=== PATIENT | male | born 1940 | race Caucasian/White ===

== ENCOUNTER 2024-03-30 22:36 | Inpatient (IN) | payer MEDICARE, BC, SELFPAY ==
[2024-03-30 22:47] VITALS: BP 179/77; PULSE 66; RESP 17; TEMP 36.4; O2SAT 98; BMI 28.4
--- NOTE | 2024-03-30 23:04 | XRR_ITS ---
PROCEDURE INFORMATION: Exam: XR Abdomen Exam date and time: 03/30/2024 11:45 PM Age: 84 years old Clinical indication: Abdominal pain; Generalized; Additional info: Abd pain TECHNIQUE: Imaging protocol: Radiologic exam of the abdomen. Views: Frontal supine view of the abdomen. 1 View. COMPARISON: No relevant prior studies available. FINDINGS: Gastrointestinal tract: Nonobstructive bowel gas pattern.. No bowel dilation. Bones/joints: Unremarkable. XR/XR abdomen 1V* [id number] IMPRESSION: As above.
[2024-03-30 23:42] VITALS: BP 154/89; PULSE 62; O2SAT 96
[2024-03-31] VITALS (26 sets, daily range): BP systolic 100–193; BP diastolic 57–107; PULSE 58–85; RESP 12–24; TEMP 36.8–37.4; O2SAT 90–98; BMI 28.8
[2024-03-31 00:15] LABS: Basophils % 0.4 %; Eosinophils # 0.1 10^3/uL (0.0-0.8); Eosinophils % 0.7 %; Hematocrit 42.4 % (37-53); Lymphocytes # 0.9 10^3/uL (0.8-4.8); Lymphocytes % 7.7 %; Mean Corpuscular HGB Conc 33.5 g/dL (30-55); Mean Corpuscular Hemoglobin 30.8 pg (27-33); Mean Platelet Volume 10.6 fL (7.4-10.4); Monocytes # 0.7 10^3/uL (0.2-0.9); Monocytes % 6.2 %; Neutrophils # 9.41 10^3/uL (1.8-7.7); Neutrophils % 84.7 %; Nucleated Red Blood Cells % 0 %; Platelet Count 199 10^3/cmm (157-399); Red Blood Count 4.61 10^6/uL (3.85-5.65); Red Cell Distribution Width 12.2 % (12.1-15.1); White Blood Count 11.11 10^3/uL (3.29-11.43)
--- NOTE | 2024-03-31 00:22 | ED_ITS ---
HPI - Abdominal Pain 2 General: Chief Complaint: Abdominal Pain Stated Complaint: ABD Pain Time Seen by Provider: 03/30/24 22:44 History of Present Illness: 84-year-old man with a history of alpha gal, pulmonary embolism on Eliquis, GERD who presents to the emergency room with lower abdominal pain. He says this started earlier today and is very severe now. He did have some vomiting after he drank chamomile tea that his had given him to try to help with his symptoms. No dysuria. No fevers. No altered mental status. No chest pain. On exam pain is in the right lower quadrant. Related Data Allergies Allergy/AdvReac Type Severity Reaction Status Date / Time Unable to Assess Allergy Unverified 03/30/24 23:03 Review of Systems 2 Narrative: Constitutional symptoms: Negative except as documented in HPI. Skin symptoms: Negative except as documented in HPI. Eye symptoms: Negative except as documented in HPI. ENMT symptoms: Negative except as documented in HPI. Respiratory symptoms: Negative except as documented in HPI. Cardiovascular symptoms: Negative except as documented in HPI. Gastrointestinal symptoms: Negative except as documented in HPI. Genitourinary symptoms: Negative except as documented in HPI. Musculoskeletal symptoms: Negative except as documented in HPI. Neurologic symptoms: Negative except as documented in HPI. Psychiatric symptoms: Negative except as documented in HPI. Endocrine symptoms: Negative except as documented in HPI. Physical Exam 2 Narrative: EXAM NARRATIVE: General: Alert, no acute distress. Skin: Warm, dry. Head: Normocephalic, atraumatic. Neck: Supple, trachea midline. Eye: Extraocular movements are intact. Ears, nose, mouth and throat: mucosa moist. Cardiovascular: Regular, Normal peripheral perfusion. Respiratory: Lungs are clear to auscultation, respirations are non-labored, breath sounds are equal, Symmetrical chest wall expansion. Gastrointestinal: Soft, moderate rlq pain, Non distended Musculoskeletal: Normal ROM, no deformity. Neurological: Alert and oriented, No focal neurological deficit observed. Psychiatric: Cooperative, appropriate mood & affect. Course 2 Vital Signs: Vital signs: Vital Signs Temperature 97.6 F 03/30/24 22:47 Pulse Rate 79 03/31/24 01:30 Respiratory Rate 24 H 03/31/24 01:30 Blood Pressure 193/107 03/31/24 01:30 Pulse Oximetry 95 03/31/24 01:30 Oxygen Delivery Me thod Room Air 03/30/24 22:47 MDM - Abdominal Pain Medical Decision Making Medical decision making: Differential diagnosis for this patient with right lower quadrant abdominal pain including but not limited to and based on the above HPI, review of systems and physical exam: Ureterolithiasis. Urinary tract infection. Appendicitis. colitis. small bowel obstruction. Crohn's flare. Pancreatitis. Cholelithiasis or cholecystitis. Hepatitis. Diverticulitis. Constipation. ovarian cyst. ovarian torsion Workup: Orders were placed to evaluate differential diagnosis based on the above differential, HPI and exam: Lab Review: Laboratory results were reviewed and interpreted by myself the emergency room physician. Mild leukocytosis with a white count of 11. No anemia. No renal failure. He does have a urinary tract infection. CT of the abdomen pelvis with contrast: Mild acute appendicitis. There are appendicoliths. Pulmonary nodule. Multiple cysts in the kidneys. This was reviewed and interpreted by myself the emergency room physician. I also reviewed the radiology report. Reexamination: Patient still has tenderness in the right lower quadrant. No increased work of breathing. No altered mental status. Consultation: I spoke with Dr. Ricks who is on-call for general surgery who accepts the patient to observation to the floor. N.p.o. status. Zosyn given per recommendations. Assessment and plan: Acute appendicitis Urinary tract infection Pulmonary nodule ?IV morphine, IV Rocephin was given for the urinary tract infection and then appendicitis was diagnosed so Zosyn was given at that time. IV Zofran. -I discussed the patient with the hospitalist on-call who is admitting the patient. - Discussed findings and plan with patient. Answered any questions. - All laboratory values were reviewed and interpreted personally by myself, the ER physician - All imaging was reviewed and interpreted personally by myself, the ER physician. - Evaluation and treatment of this problem were appropriate in the emergency setting Lab Data 03/31/24 00:00 03/31/24 00:00 Labs/Radiology: Radiology Impressions Abdomen X-Ray 03/30/24 23:04 IMPRESSION: As above. Abdomen/Pelvis CT 03/31/24 00:41 IMPRESSION: 1. The appendix is dilated with multiple appendicoliths and mild periappendiceal fat stranding consistent with mild acute appendicitis. No evidence of complication. 2. Incidental left lower lobe pulmonary nodule. For patients at low risk (minimal or absent history of smoking and of other known risk factors), no routine follow-up is indicated. For patients at high risk (history of smoking or of other known risk factors), consider optional CT Chest at 12 months. (Reference: Fanny) THIS REPORT CONTAINS FINDINGS THAT MAY BE CRITICAL TO PATIENT CARE. The findings were verbally communicated via telephone conference with TAL SALEEM at 1:34 AM SURGICAL APPLIANCES SALESPERSON on 03/31/2024. The findings were acknowledged and understood. COMMENTS: Consistent with the [employer]'s Incidental Findings Committee white paper (J Am Ami Radiol 2018): Any incidental renal lesion less than 1 cm or classified as too small to characterize, or any incidental cystic renal lesion characterized as simple-appearing, is likely benign. No follow-up imaging is recommended for these lesions per consensus recommendations based on imaging criteria. REFERENCES: Fanny Engel, et al. Guidelines for Management of Incidental Pulmonary Nodules Detected on CT Images: From the Fleischner Society 2017. Radiology. 2017;284(1):228-243. Laboratory Results WBC 11.11 10^3/uL (3.29-11.43) 03/31/24 00:00 RBC 4.61 10^6/uL (3.85-5.65) 03/31/24 00:00 Hgb 14.20 g/dL (11.27-16.99) 03/31/24 00:00 Hct 42.4 % (37-53) 03/31/24 00:00 MCV 92.0 fl (82-101) 03/31/24 00:00 MCH 30.8 pg (27-33) 03/31/24 00:00 MCHC 33.5 g/dL (30-55) 03/31/24 00:00 RDW 12.2 % (12.1-15.1) 03/31/24 00:00 Plt Count 199 10^3/cmm (157-399) 03/31/24 00:00 MPV 10.6 fL (7.4-10.4) H 03/31/24 00:00 Neut % (Auto) 84.7 % 03/31/24 00:00 Lymph % (Auto) 7.7 % 03/31/24 00:00 [place] % (Auto) 6.2 % 03/31/24 00:00 Eos % (Auto) 0.7 % 03/31/24 00:00 Baso % (Auto) 0.4 % 03/31/24 00:00 Neut # (Auto) 9.41 10^3/uL (1.8-7.7) H 03/31/24 00:00 Lymph # (Auto) 0.9 10^3/uL (0.8-4.8) 03/31/24 00:00 [place] # (Auto) 0.7 10^3/uL (0.2-0.9) 03/31/24 00:00 Eos # (Auto) 0.1 10^3/uL (0.0-0.8) 03/31/24 00:00 Baso # (Auto) 0.0 10^3/uL (0.0-0.1) 03/31/24 00:00 Nucleated RBC % (auto) 0 % 03/31/24 00:00 Nucleated RBCs # 0.0 /100WBC 03/31/24 00:00 Sodium 141 mmol/L (136-145) 03/31/24 00:00 Potassium 4.0 mmol/L (3.5-5.1) 03/31/24 00:00 Chloride 104 mmol/L (98-107) 03/31/24 00:00 Carbon Dioxide 26 mmol/L (22-29) 03/31/24 00:00 Anion Gap 15.0 (5-19) 03/31/24 00:00 BUN 20 mg/dL (8-23) 03/31/24 00:00 Creatinine 0.8 mg/dL (0.7-1.2) 03/31/24 00:00 GFR Calculation Not Reportable 03/31/24 00:00 Glucose 121 mg/dL (65-115) H 03/31/24 00:00 Calculated Osmolality 296 mOsm/kg (285-295) H 03/31/24 00:00 Lactic Acid 1.2 mmol/L (0.5-2.2) 03/31/24 00:00 Calcium 9.9 mg/dL (8.5-10.5) 03/31/24 00:00 Total Bilirubin 0.5 mg/dL (0.15-1.2) 03/31/24 00:00 AST 14 U/L (0-40) 03/31/24 00:00 ALT 13 U/L (0-41) 03/31/24 00:00 Alkaline Phosphatase 99 U/L (40-130) 03/31/24 00:00 Total Protein 6.8 g/dL (6.6-8.7) 03/31/24 00:00 Albumin 4.1 g/dL (3.5-5.2) 03/31/24 00:00 Globulin 2.7 g/dL (1.3-4.6) 03/31/24 00:00 Lipase 10 U/L (13-60) L 03/31/24 00:00 Urine Color Yellow (Yellow) 03/31/24:22 Urine Appearance Clear (CLEAR) 03/31/24: Urine pH 5.5 (5-7) 03/31/24:22 Ur Specific [place] 1.017 (1.005-1.030) 03/31/24 00: Urine Protein Trace (Negative) A 03/31/24: Urine Glucose (UA) Negative (Normal) 03/31/24: Urine Ketones Negative (Negative) 03/31/24 00: Urine Blood Non-haemolysed trace (Negative) 03/31/24: Urine Nitrate Negative (Negative) 03/31/24: Urine Bilirubin Negative (Negative) 03/31/24: Urine Urobilinogen 1.0 mg/dL (Negative) 03/31/24:22 Ur Leukocyte Esterase 3+ (Negative) A 03/31/24: Urine RBC 3-5 /hpf (0-2) 03/31/24: Urine WBC 21-50 /hpf (0-5) H 03/31/24 00:22 Ur Squamous Epith Cells 0-5 /hpf (0-5) 03/31/24: Amorphous Sediment Not Reportable 03/31/24: Urine Bacteria None seen /hpf (NONE) 03/31/24: Hyaline Casts 0.40 /lpf 03/31/24 00:22 All radiology interpretation(s) finalized by discharge Discharge Plan Discharge Patient Disposition: Placed in Observation Clinical Impression: Acute appendicitis, Urinary tract infection, Pulmonary nodule Coding Level of Care Code ED Director Global Development for Uriel Stafford
[2024-03-31 00:36] LABS: Alanine Aminotransferase 13 U/L (0-41); Albumin Level 4.1 g/dL (3.5-5.2); Alkaline Phosphatase 99 U/L (40-130); Aspartate Amino Transferase 14 U/L (0-40); Blood Urea Nitrogen 20 mg/dL (8-23); Calcium 9.9 mg/dL (8.5-10.5); Carbon Dioxide 26 mmol/L (22-29); Chloride 104 mmol/L (98-107); Creatinine Clr Calc Pharmacy 77.5098; Globulin 2.7 g/dL (1.3-4.6); Glucose 121 mg/dL (65-115); Lipase 10 U/L (13-60); Osmolality Calculated 296 mOsm/kg (285-295); Sodium 141 mmol/L (136-145); Total Bilirubin 0.5 mg/dL (0.15-1.2); Total Protein 6.8 g/dL (6.6-8.7)
[2024-03-31 00:39] LABS: Lactic Sepsis W/Reflex 1.2 mmol/L (0.5-2.2)
[2024-03-31 00:40] LABS: Bilirubin Urine Negative (Negative); Blood Urine Non-haemolysed trace (Negative); Glucose Urine UA Negative (Normal); Ketones Urine Negative (Negative); Leukocyte Esterase Urine 3+ (Negative); Nitrate Urine Negative (Negative); Protein Urine Trace (Negative); Specific Gravity, Urine 1.017 (1.005-1.030); Urine Appearance Clear (CLEAR); Urine Color Yellow (Yellow); pH Urine 5.5 (5-7)
--- NOTE | 2024-03-31 00:41 | CTR_ITS ---
PROCEDURE INFORMATION: Exam: CT Abdomen And Pelvis With Contrast Exam date and time: 03/31/2024 12:54 AM Age: 84 years old Clinical indication: Abdominal pain; Generalized TECHNIQUE: Imaging protocol: Computed tomography of the abdomen and pelvis with contrast. Radiation optimization: All CT scans at this facility use at least one of these dose optimization techniques: automated exposure control; mA and/or kV adjustment per patient size (includes targeted exams where dose is matched to clinical indication); or iterative reconstruction. Contrast material: OMNI 350; Contrast volume: 100 ml; Contrast route: INTRAVENOUS (IV); COMPARISON: CR (ABDOMEN, ) 03/30/2024 11:45 PM RADIATION DOSE METRICS: Total DLP (mGy-cm): 921.59 FINDINGS: Lungs: 4 mm left lower lobe noncalcified nodule (series 3, image 5). Coronary arteries: Severe coronary artery calcifications. Liver: Multiple hypodense lesions throughout the right hepatic lobe likely representing simple cysts. Gallbladder and biliary ducts: Cholelithiasis without evidence of acute cholecystitis. Pancreas: Unremarkable. Spleen: Unremarkable. Adrenal glands: Unremarkable. Kidneys and ureters: Bilateral simple cortical renal cysts. Stomach and bowel: Colonic diverticulosis without diverticulitis. Appendix: The appendix is dilated measuring up to 9 mm with multiple appendicoliths and mild periappendiceal fat stranding consistent with acute appendicitis (series 6, image 58). Intraperitoneal space: No free air or free fluid. Vasculature: Moderate atherosclerotic changes of the aorta and its major branches. Lymph nodes: Unremarkable. Urinary bladder: Unremarkable. Reproductive: Unremarkable. Bones/joints: Moderate multilevel spondylosis. Soft tissues: Small fat containing umbilical hernia. CT/CT abdomen pelvis w con* [id number] IMPRESSION: 1. The appendix is dilated with multiple appendicoliths and mild periappendiceal fat stranding consistent with mild acute appendicitis. No evidence of complication. 2. Incidental left lower lobe pulmonary nodule. For patients at low risk (minimal or absent history of smoking and of other known risk factors), no routine follow-up is indicated. For patients at high risk (history of smoking or of other known risk factors), consider optional CT Chest at 12 months. (Reference: Fanny) THIS REPORT CONTAINS FINDINGS THAT MAY BE CRITICAL TO PATIENT CARE. The findings were verbally communicated via telephone conference with TAL SALEEM at 1:34 AM GALVANIZING POT RUNNER on 03/31/2024. The findings were acknowledged and understood. COMMENTS: Consistent with the [employer]'s Incidental Findings Committee white paper (J Am Ami Radiol 2018): Any incidental renal lesion less than 1 cm or classified as too small to characterize, or any incidental cystic renal lesion characterized as simple-appearing, is likely benign. No follow-up imaging is recommended for these lesions per consensus recommendations based on imaging criteria. REFERENCES: Fanny H, et al. Guidelines for Management of Incidental Pulmonary Nodules Detected on CT Images: From the Fleischner Society 2017. Radiology. 2017;284(1):228-243.
[2024-03-31 00:45] LABS: Bacteria Urine None Seen /hpf; Squamous Epithelial Cell Urine 0-5 /hpf (0-5); WBC Urine 21-50 /hpf (0-5)
[2024-03-31 00:54] LABS: Add Urine Culture? Yes
--- NOTE | 2024-03-31 00:56 | PC.NURSE ---
0030: Patient states his pain is a 02/10. Dr. Ch notified.
[2024-03-31] MEDS: iohexol 350 mg/mL 500 mL Btl (per mL) IV (00:57)
[2024-03-31] MEDS: cefTRIAXone 1,000 mg SDV 1000 MG IVP (01:10)
--- NOTE | 2024-03-31 01:11 | PC.NURSE ---
Patient states he would like to hold off on taking the morphine and zofran at this time.
[2024-03-31] MEDS: ondansetron 2 mg/ML SDV 2 mL 4 MG IVP (02:25)
[2024-03-31] MEDS: morphine 4 mg/mL SDV 1 mL IVP (02:27)
[2024-03-31] MEDS: piperacillin-tazobactam 4.5 GM in sodium chloride 0.9% (plus) 50 ML IV (02:30)
[2024-03-31] MEDS: piperacillin-tazobactam 3.375 GM in sodium chloride 0.9% (plus) 50 ML IV ×3 (06:17→22:56)
[2024-03-31 06:24] LABS: Basophils % 0.3 %; Eosinophils # 0.1 10^3/uL (0.0-0.8); Eosinophils % 0.7 %; Hematocrit 40.5 % (37-53); Lymphocytes # 1.1 10^3/uL (0.8-4.8); Lymphocytes % 8.8 %; Mean Corpuscular HGB Conc 33.3 g/dL (30-55); Mean Corpuscular Volume 93.1 fl (82-101); Mean Platelet Volume 10.3 fL (7.4-10.4); Monocytes # 1.3 10^3/uL (0.2-0.9); Monocytes % 9.8 %; Neutrophils # 10.18 10^3/uL (1.8-7.7); Neutrophils % 80.1 %; Nucleated Red Blood Cells % 0 %; Platelet Count 179 10^3/cmm (157-399); Red Blood Count 4.35 10^6/uL (3.85-5.65); Red Cell Distribution Width 12.3 % (12.1-15.1); White Blood Count 12.72 10^3/uL (3.29-11.43)
[2024-03-31] MEDS: morphine 4 mg/mL SDV 1 mL 2 MG IVP (06:24)
[2024-03-31 06:46] LABS: Blood Urea Nitrogen 17 mg/dL (8-23); Calcium 9.6 mg/dL (8.5-10.5); Carbon Dioxide 23 mmol/L (22-29); Chloride 106 mmol/L (98-107); Creatinine Clr Calc Pharmacy 78.0391; Glucose 103 mg/dL (65-115); Osmolality Calculated 292 mOsm/kg (285-295); Sodium 140 mmol/L (136-145)
--- NOTE | 2024-03-31 07:36 | P.HP_ITS ---
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 A CAT scan in the ED showed evidence of acute appendicitis without perforation. Patient did take his last dose of Eliquis yesterday night. Review of Systems 2 General: Reports: 10 or more systems reviewed and unremarkable except in HPI and below Medications/Allergies Home Medications Medication Instructions Recorded Confirmed Last Taken Type apixaban 5 mg tablet (Eliquis) 5 mg PO BID 03/31/24 03/31/24 03/30/24 18:30 History Allergies Allergy/AdvReac Type Severity Reaction Status Date / Time Alpha-Gal Allergy Unknown Verified 03/31/24 02:16 (Hmppgetef-Wivkp-0,3-Gala aspirin Allergy Unknown Verified 03/31/24 02:16 ciprofloxacin [From Cipro] Allergy Unknown Verified 03/31/24 02:16 salmeterol Allergy Unknown Verified 03/31/24 02:16 vancomycin Allergy Unknown Verified 03/31/24 02:16 Vitals/I&O/Wt Last Vital Signs Temp 98.3 F 03/31/24 02:55 Pulse 70 03/31/24 02:55 Resp 18 03/31/24 06:24 BP 139/65 03/31/24 03:51 Pulse Ox 95 03/31/24 02:55 O2 Del Method Room Air 03/31/24 02:57 03/30/24 03/31/24 03/31/24 22:59 06:59 14:59 Intake Total 0 / 0 50 / 50 Balance 0 / 0 50 / 50 Weight last 48 hrs Weight 201 lb Weight 201 lb Weight 198 lb Physical Exam 2 Narrative: General : Patient is well developed , no acute distress, oriented x3 Head : Normal cephalic, a-traumatic. Nose : Mucous membranes are without erythema. Lungs : Equal chest rise bilaterally, no use of accessory muscles, trachea is midline. CV : Rate and rhythm are normal. Abdomen : Soft, right lower quadrant tenderness, no peritonitis Extremities : No edema. Upper extremities are normal bilaterally. Back : non-tender to palpation, no CVA tenderness. Data 03/31/24 06:16 03/31/24 06:16 Micro: Microbiology 03/31/24 01:35 Blood Culture - Preliminary Blood SPECIMEN COLLECTED 03/31/24 01:32 Blood Culture - Preliminary Blood SPECIMEN COLLECTED A&P Assessment and plan (1) Acute appendicitis: (2) Medication induced coagulopathy: Plan After complete history, physical examination and review of all available clinical data the following is my assessment. This is a 84-year-old male who presents with acute appendicitis in the setting of coagulopathy due to chronic use of anticoagulants. Imaging at this point shows uncomplicated appendicitis, white count this morning is 12.7. I had extensive discussion with the patient regarding the alternatives for management including nonoperative treatment due to his high risk of bleeding during surgery. I have discussed with the patient that in the case of nonoperative management being successful there is a 20% chance of recurrence. After extensive discussion patient has indicated that he will much rather prefer going forward with surgery rather than doing nonoperative management. Have explained to the patient that we cannot proceed with surgery today as he took his anticoagulation yesterday night making a surgical intervention unviable at this time. Current guidelines advocate for 24 to 48-hour delay of surgery in cases of chronic anticoagulation use with Eliquis. Having this in consideration we have discussed the possibility of proceeding to the OR tomorrow morning for a laparoscopic possible open appendectomy. I Discussed the risk benefits of the procedure with the patient including the risk of bleeding, explained to the patient that he is at increased risk of bleeding both intra-abdominal bleeding and superficial bleeding in the skin, risk of intra-abdominal abscess, risk of injuring surrounding structures, there is a chance that there is progression to perforation requiring drainage and antibiotics for 3 to 5 days, need for additional surgical interventions, hernia formation, and in this particular patient the result bleeding due to coagulopathy can lead to major hemorrhage and . Patient shows understanding and agrees with proceeding. Can Liquid diet today N.p.o. after midnight Zosyn every 8 Pain control SCDs Attestations 2 Medical Necessity Statement*: Patient will require 24 to 48 hours of hospital stay for management of acute appendicitis in the setting of current anticoagulation use. Coding Level of Care Code Acute Code for [facility] Diagnoses Acute appendicitis K35.80 Medication induced coagulopathy D68.9; T50.905A
--- NOTE | 2024-03-31 09:39 | ECG_ITS ---
[employer] Test Date: 2024-03-30 Pat Name: Alexis Hoffman Department: Room: 268 Gender: Male Client Technical Professional: : 1940 Requested By: Derek Aden Order Number: [id number] Zara MD: Nakul Morillo M.D. Measurements Intervals [place] Rate: 71 P: 76 KS: 185 QRS: 82 QRSD: 121 T: 58 QT: 421 QTc: 457 Interpretive Statements SINUS RHYTHM MODERATE INTRAVENTRICULAR CONDUCTION DELAY [110+ ms QRS DURATION] INTERPRETATION BASED ON A DEFAULT AGE OF 40 YEARS No previous ECG available for comparison Electronically Signed On 03-31-2024 13:54:26 ADVERTISING DISPATCH CLERKS SUPERVISOR by Nakul Morillo M.D. [email or web address]
[2024-04-01] VITALS (16 sets, daily range): BP systolic 102–144; BP diastolic 55–80; PULSE 58–79; RESP 14–20; TEMP 36.2–36.7; O2SAT 91–98
[2024-04-01 05:31] LABS: Basophils # 0.1 10^3/uL (0.0-0.1); Basophils % 0.6 %; Eosinophils # 0.2 10^3/uL (0.0-0.8); Eosinophils % 2.9 %; Hematocrit 37.2 % (37-53); Lymphocytes # 1.3 10^3/uL (0.8-4.8); Lymphocytes % 15.3 %; Mean Corpuscular HGB Conc 33.3 g/dL (30-55); Mean Corpuscular Hemoglobin 31.6 pg (27-33); Mean Corpuscular Volume 94.7 fl (82-101); Mean Platelet Volume 10.2 fL (7.4-10.4); Monocytes # 0.8 10^3/uL (0.2-0.9); Monocytes % 10.1 %; Neutrophils # 5.76 10^3/uL (1.8-7.7); Neutrophils % 70.7 %; Nucleated Red Blood Cells % 0 %; Platelet Count 155 10^3/cmm (157-399); Red Blood Count 3.93 10^6/uL (3.85-5.65); Red Cell Distribution Width 12.7 % (12.1-15.1); White Blood Count 8.15 10^3/uL (3.29-11.43)
[2024-04-01] MEDS: piperacillin-tazobactam 3.375 GM in sodium chloride 0.9% (plus) 50 ML IV ×3 (05:54→22:57)
[2024-04-01 05:55] LABS: Anion Gap 12.8 (5-19); Blood Urea Nitrogen 16 mg/dL (8-23); Calcium 9.5 mg/dL (8.5-10.5); Carbon Dioxide 24 mmol/L (22-29); Chloride 104 mmol/L (98-107); Creatinine Clr Calc Pharmacy 52.0497; Glucose 94 mg/dL (65-115); Osmolality Calculated 285 mOsm/kg (285-295); Potassium 3.8 mmol/L (3.5-5.1); Sodium 137 mmol/L (136-145)
--- NOTE | 2024-04-01 07:15 | ANES.PREANE2 ---
Pre-Anesthetic Assessment Height/Weight: Height 5 ft 10 in Weight 201 lb 3.2 oz Temp Pulse Resp BP Pulse Ox O2 Del Method 97.9 F 66 20 H 121/62 93 Room Air 04/01/24 03:51 04/01/24 03:51 04/01/24 03:51 04/01/24 03:51 04/01/24 03:51 04/01/24 03:51 Preop Diagnosis: Acute appendicitis Operation Date: 04/01/24 08:10 Proposed Procedures p Laparoscopic Appendectomy(Not Applicable) - Derek Mayer MD Was Beta Brandon taken within 24 hours: N/A Was Clonidine taken within 24 hours: N/A Last intake: Intake Last Liquid Date 03/31/24 Last Liquid Time 21:00 Social No alcohol and No tobacco Exam alert, oriented x 3, clear to auscultation bilaterally and regular rate & rhythm Airway Submandibular: within normal limits Cervical ROM: within normal limits Mallampati: Class I Dentition: chipped and full Anesthetic Plan ASA status: 3 Anesthesia: General Other: Patient initially presented 03/30/2024 with acute appendicitis. Factor V Leiden with chronic DVTs, on Eliquis. Last dose 03/30 Denies any issues with anesthesia in the past History of alpha gal, anesthesia team aware Breast cancer 5 years ago, left mastectomy with lymph node dissection History of asthma, controlled Labs today reviewed, WBC normalized. CMP WNL EKG showing sinus rhythm with moderate conduction delay Type and screen performed 03/31 Plan for GETA. Spoke with patient about increased risk of blood clots due to his significant history. He is aware and accepts risk Medications/Allergies Home Medications Medication Instructions Recorded Confirmed Last Taken Type apixaban 5 mg tablet (Eliquis) 5 mg PO BID 03/31/24 03/31/24 03/30/24 18:30 History Allergies Allergy/AdvReac Type Severity Reaction Status Date / Time Alpha-Gal Allergy Unknown Verified 03/31/24 02:16 (Iburjlryc-Jvwec-4,3-Gala aspirin Allergy Unknown Verified 03/31/24 02:16 ciprofloxacin [From Cipro] Allergy Unknown Verified 03/31/24 02:16 salmeterol Allergy Unknown Verified 03/31/24 02:16 vancomycin Allergy Unknown Verified 03/31/24 02:16 Current Medications Generic Name Dose Route Start Last Admin Trade Name Freq PRN Reason Stop Dose Admin Piperacillin Sod/Tazobactam 50 mls @ 12.5 mls/hr 03/31/24 07:00 04/01/24 05:54 Sod 3.375 gm/ Sodium Chloride IV 12.5 mls/hr Q8H ANGELITA Administration Protocol Morphine Sulfate 2 mg 03/31/24 02:55 03/31/24 06:24 Morphine 4 Mg/Ml Sdv 1 Ml IVP 2 mg Q4H PRN Administration SEVERE PAIN Data Anesthesia 04/01/24 05:13 04/01/24 05:13 Short CBC 03/31/24 03/31/24 04/01/24 Range/Units 00:00 06:16 05:13 WBC 11.11 12.72 H 8.15 (3.29-11.43) 10^3/uL Hgb 14.20 13.50 12.40 (11.27-16.99) g/dL Hct 42.4 40.5 37.2 (37-53) % MCV 92.0 93.1 94.7 (82-101) fl Plt Count 199 179 155 L (157-399) 10^3/cmm Neut % (Auto) 84.7 80.1 70.7 % Neut # (Auto) 9.41 H 10.18 H 5.76 (1.8-7.7) 10^3/uL BMP 03/31/24 03/31/24 04/01/24 00:00 06:16 05:13 Sodium 141 140 137 Potassium 4.0 4.0 3.8 Chloride 104 106 104 Carbon Dioxide 26 23 24 BUN 20 17 16 Creatinine 0.8 0.8 1.2 Glucose 121 H 103 94 Calcium 9.9 9.6 9.5 Liver Function 03/31/24 Range/Units 00:00 Total Bilirubin 0.5 (0.15-1.2) mg/dL AST 14 (0-40) U/L ALT 13 (0-41) U/L Alkaline Phosphatase 99 (40-130) U/L Albumin 4.1 (3.5-5.2) g/dL Urine 03/31/24 Range/Units 00:22 Urine Color Yellow (Yellow) Urine Appearance Clear (CLEAR) Urine pH 5.5 (5-7) Ur Specific [place] 1.017 (1.005-1.030) Urine Protein Trace A (Negative) Urine Glucose (UA) Negative (Normal) Urine Ketones Negative (Negative) Urine Nitrate Negative (Negative) Urine Bilirubin Negative (Negative) Ur Leukocyte Esterase 3+ A (Negative) Urine RBC 3-5 (0-2) /hpf Urine WBC 21-50 H (0-5) /hpf Blood Bank 03/31/24 06:16 Blood Type O Positive Rho(D) Type Rh positive Antibody Screen Negative Microbiology 03/31/24 01:32 Blood Culture - Preliminary Blood NEGATIVE TO DATE 03/31/24 01:35 Blood Culture - Preliminary Blood NEGATIVE TO DATE Cardiac Studies: No Data to Display
--- NOTE | 2024-04-01 07:49 | P.HPUD_ITS ---
Surgery/Procedure H&P Update DATE OF PROCEDURE: April 01, 2024 DATE H&P PERFORMED: 03/31/24 H&P UPDATE INFORMATION: I have reviewed H&P completed within last 30 days, I have examined patient prior to procedure, No changes to prior documentation and H&P is in [facility] EMR on date indicated CHANGES TO PREVIOUS DOCUMENTATION: Continues mild right lower quadrant abdominal pain, white count is normal today, for laparoscopic appendectomy today. Patient will be started on therapeutic anticoagulation within 24 hours of surgery. PREOP DIAGNOSIS: Acute appendicitis PLANNED PROCEDURE: Operation Date: 04/01/24 08:10 Proposed Procedures p Laparoscopic Appendectomy(Not Applicable) - Derek Mayer MD
[2024-04-01] MEDS: BUPivacaine 0.25% INJ 10 mL INJECTION (08:11)
[2024-04-01] MEDS: lidocaine-epi 1% 20 mL INJ INJECTION (08:12)
--- NOTE | 2024-04-01 09:00 | PM.OP ---
Operative Report Date of procedure: April 01, 2024 Pre-op diagnosis: Acute appendicitis and coagulopathy Post-op diagnosis: Same Post-op findings: There was an inflamed appendix without perforation there was an early phlegmon formation between the appendix and the terminal ileum Procedure done: Laparoscopic appendectomy Specimens removed/disposition: appendix Surgeon: Derek Mayer MD Child Study Team Director: CASPER OR Staff Estimated blood loss: 10 Complications: none Brief History: This is a 84-year-old male who presents with acute appendicitis in the setting of coagulopathy due to medication, 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 After waiting for 24 hours for some of the anticoagulant effect to wear off we decided to proceed with laparoscopic possible open appendectomy. Procedure: Patient was brought into the OR, he was placed in a supine position. General anesthesia was given. The abdomen was prepped and draped in the usual sterile fashion. A timeout was conducted. I then accessed the abdomen without Optiview trocar measuring 5 mm in the left upper quadrant. Initial pneumoperitoneum was obtained and laparoscopy showed no evidence of visceral injury during entry. Additional 12 mm trocar was placed in the supraumbilical location under direct visualization and a 5 mm trocar was placed in the left lower quadrant under direct visualization. The patient was placed in steep Trendelenburg with the left side down, the appendix was identified in the right lower quadrant, there was a phlegmonous formation with the terminal ileum, I was able to umbilical this early phlegmon with careful blunt dissection, I then grabbed appendix from the tip and elevated it, I then was able to take down the mesoappendix from the tip to the base of the appendix using LigaSure, careful consideration of keeping good hemostasis was taken. The base of the appendix was healthy, I transected the appendix at the base using a 45 mm blue load Endo JOSE stapler. The staple line was hemostatic and appeared healthy, the specimen was removed from the abdomen through the suprapubic port using an Endo Catch bag. I then proceeded to completely desufflated the abdomen for 2 minutes to ensure that there will be no bleeding under lower pressure, once the abdomen was reinsufflated there was no evidence of any active bleeding or oozing. I then proceeded to remove the supra umbilical trocar and the trocar site was closed with a Miguel A-Isabel suture passer and 0 Vicryl under direct visualization. The left lower quadrant trocar was removed under direct visualization and no bleeding was noted, the left upper quadrant trocar was used to evacuate the pneumoperitoneum and subsequently removed. Local anesthesia was infiltrated in all ports, the ports were closed in layers using #3-0 Vicryl for the subcutaneous tissue #4 Monocryl for the skin. Dermabond was applied and compressive dressing was applied on top. At the end of the procedure all counts were correct, the patient tolerated well the procedure and was transferred to the PACU in stable condition.
--- NOTE | 2024-04-01 09:36 | ANE.PACU2 ---
Inpatient post-anesthesia follow up: Airway intact: Yes Vital signs: Temperature 97.7 F Pulse Rate 65 Respiratory Rate 17 Blood Pressure 114/68 Pulse Oximetry 93 Oxygen Delivery Me thod Room Air Oxygen Flow Rate 7 Fraction of Inspir ed Oxygen Hydration adequate: Yes Nausea and vomiting: No Pain level: 1 Mental status: Baseline
--- NOTE | 2024-04-01 11:14 | PC.SOCIAL ---
IMM Updated Updated pt on IMM. No questions voiced. Provided pt a copy. Initialed, dated, & timed a copy & placed in chart.
[2024-04-02] MEDS: ondansetron 2 mg/ML SDV 2 mL 4 MG IVP (01:15)
[2024-04-02] MEDS: morphine 4 mg/mL SDV 1 mL 2 MG IVP ×2 (01:15→06:15)
[2024-04-02 03:23] VITALS: BP 146/60; PULSE 53; RESP 16; TEMP 36.5; O2SAT 98
[2024-04-02 05:01] LABS: Basophils % 0.2 %; Eosinophils % 0.4 %; Lymphocytes # 1.1 10^3/uL (0.8-4.8); Lymphocytes % 12.2 %; Mean Corpuscular HGB Conc 32.1 g/dL (30-55); Mean Corpuscular Hemoglobin 30.8 pg (27-33); Mean Platelet Volume 10.8 fL (7.4-10.4); Monocytes # 0.8 10^3/uL (0.2-0.9); Monocytes % 8.5 %; Neutrophils # 7.01 10^3/uL (1.8-7.7); Neutrophils % 78.3 %; Nucleated Red Blood Cells % 0 %; Platelet Count 132 10^3/cmm (157-399); Red Blood Count 3.96 10^6/uL (3.85-5.65); Red Cell Distribution Width 12.3 % (12.1-15.1); White Blood Count 8.96 10^3/uL (3.29-11.43)
[2024-04-02 05:21] LABS: Anion Gap 15.5 (5-19); Blood Urea Nitrogen 22 mg/dL (8-23); Calcium 9.6 mg/dL (8.5-10.5); Carbon Dioxide 23 mmol/L (22-29); Chloride 106 mmol/L (98-107); Creatinine Clr Calc Pharmacy 56.7815; Glucose 106 mg/dL (65-115); Osmolality Calculated 294 mOsm/kg (285-295); Potassium 4.5 mmol/L (3.5-5.1); Sodium 140 mmol/L (136-145)
[2024-04-02] MEDS: piperacillin-tazobactam 3.375 GM in sodium chloride 0.9% (plus) 50 ML IV (06:03)
[2024-04-02 06:15] VITALS: RESP 16; O2SAT 96
[2024-04-02 07:50] VITALS: BP 195/103; PULSE 62; RESP 16; TEMP 36.7; O2SAT 95
--- NOTE | 2024-04-02 09:17 | P.DS_ITS ---
Discharge Providers Date of Admission: 03/31/24 02:40 Date of Discharge: April 02, 2024 Attending Provider at Admission: Derek Mayer MD Attending Provider at Discharge: Derek Mayer MD Diagnoses at Discharge Discharge Diagnosis (1) Acute appendicitis: Status: Acute (2) Medication induced coagulopathy: Status: Acute Reason for Visit Reason for Visit: ABD Pain Hospital Course Hospital Course This 84-year-old male who presented to the hospital with acute appendicitis in the setting of coagulopathy due to chronic Eliquis use. 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 Therefore he takes Eliquis daily. Upon initial presentation we waited for 24 hours for some of the effect of the Eliquis to wear off before proceeding to the OR for laparoscopic appendectomy. This was done without complications. After 24 hours hemoglobin was stable patient was able to restart Eliquis. He will be transition to the outpatient setting. I had a long conversation with the patient regarding follow-up care, patient is not from the area will be returning to [facility] on Thursday, I have explained the patient he can go to primary care doctor for evaluation of his wounds in 1 to 2 weeks. If he decides to stay in the area I will happy to see him. Patient will stay in the area until Thursday in order to ensure an adequate transition to the outpatient setting. Physical Exam GI: OTHER: Abdomen is soft, minimally tender to palpation, surgical incisions are healing well, no significant bleeding. Discharge Data Studies Completed and Pending Completed Studies During Hospitalization Category Date Time Status CT abdomen pelvis w con* [id number] Stat Cat Scan 03/31/24 00:41 Completed XR abdomen 1V* [id number] Stat Exams 03/30/24 23:04 Completed Pending at discharge Category Date Time Status BMP [Basic Metabolic Panel] AM LABS Lab 04/03/24 04:00 Ordered Blood Culture Stat Lab 03/31/24 01:35 Results CBC Auto Diff [Complete Blood Count w/Auto] AM LABS Lab 04/03/24 04:00 Ordered Urine Culture Stat Lab 03/31/24 00:22 Results Pathology: Surgical [PTH] Routine Pth 04/01/24 09:01 Received Radiology Impressions Abdomen X-Ray 03/30/24 23:04 IMPRESSION: As above. Abdomen/Pelvis CT 03/31/24 00:41 IMPRESSION: 1. The appendix is dilated with multiple appendicoliths and mild periappendiceal fat stranding consistent with mild acute appendicitis. No evidence of complication. 2. Incidental left lower lobe pulmonary nodule. For patients at low risk (minimal or absent history of smoking and of other known risk factors), no routine follow-up is indicated. For patients at high risk (history of smoking or of other known risk factors), consider optional CT Chest at 12 months. (Reference: Fanny) THIS REPORT CONTAINS FINDINGS THAT MAY BE CRITICAL TO PATIENT CARE. The findings were verbally communicated via telephone conference with TAL SALEEM at 1:34 AM SWIMMING TEACHER on 03/31/2024. The findings were acknowledged and understood. COMMENTS: Consistent with the [employer]'s Incidental Findings Committee white paper (J Am Ami Radiol 2018): Any incidental renal lesion less than 1 cm or classified as too small to characterize, or any incidental cystic renal lesion characterized as simple-appearing, is likely benign. No follow-up imaging is recommended for these lesions per consensus recommendations based on imaging criteria. REFERENCES: Fanny Engel, et al. Guidelines for Management of Incidental Pulmonary Nodules Detected on CT Images: From the Fleischner Society 2017. Radiology. 2017;284(1):228-243. Laboratory Results WBC 8.96 10^3/uL (3.29-11.43) 04/02/24 04:19 RBC 3.96 10^6/uL (3.85-5.65) 04/02/24 04:19 Hgb 12.20 g/dL (11.27-16.99) 04/02/24 04:19 Hct 38.0 % (37-53) 04/02/24 04:19 MCV 96.0 fl (82-101) 04/02/24 04:19 MCH 30.8 pg (27-33) 04/02/24 04:19 MCHC 32.1 g/dL (30-55) 04/02/24 04:19 RDW 12.3 % (12.1-15.1) 04/02/24 04:19 Plt Count 132 10^3/cmm (157-399) L 04/02/24 04:19 MPV 10.8 fL (7.4-10.4) H 04/02/24 04:19 Neut % (Auto) 78.3 % 04/02/24 04:19 Lymph % (Auto) 12.2 % 04/02/24 04:19 [place] % (Auto) 8.5 % 04/02/24 04:19 Eos % (Auto) 0.4 % 04/02/24 04:19 Baso % (Auto) 0.2 % 04/02/24 04:19 Neut # (Auto) 7.01 10^3/uL (1.8-7.7) 04/02/24 04:19 Lymph # (Auto) 1.1 10^3/uL (0.8-4.8) 04/02/24 04:19 [place] # (Auto) 0.8 10^3/uL (0.2-0.9) 04/02/24 04:19 Eos # (Auto) 0.0 10^3/uL (0.0-0.8) 04/02/24 04:19 Baso # (Auto) 0.0 10^3/uL (0.0-0.1) 04/02/24 04:19 Nucleated RBC % (auto) 0 % 04/02/24 04:19 Nucleated RBCs # 0.0 /100WBC 04/02/24 04:19 Sodium 140 mmol/L (136-145) 04/02/24 04:19 Potassium 4.5 mmol/L (3.5-5.1) 04/02/24 04:19 Chloride 106 mmol/L (98-107) 04/02/24 04:19 Carbon Dioxide 23 mmol/L (22-29) 04/02/24 04:19 Anion Gap 15.5 (5-19) 04/02/24 04:19 BUN 22 mg/dL (8-23) 04/02/24 04:19 Creatinine 1.1 mg/dL (0.7-1.2) 04/02/24 04:19 GFR Calculation Not Reportable 04/02/24 04:19 Glucose 106 mg/dL (65-115) 04/02/24 04:19 Calculated Osmolality 294 mOsm/kg (285-295) 04/02/24 04:19 Lactic Acid 1.2 mmol/L (0.5-2.2) 03/31/24 00:00 Calcium 9.6 mg/dL (8.5-10.5) 04/02/24 04:19 Total Bilirubin 0.5 mg/dL (0.15-1.2) 03/31/24 00:00 AST 14 U/L (0-40) 03/31/24 00:00 ALT 13 U/L (0-41) 03/31/24 00:00 Alkaline Phosphatase 99 U/L (40-130) 03/31/24 00:00 Total Protein 6.8 g/dL (6.6-8.7) 03/31/24 00:00 Albumin 4.1 g/dL (3.5-5.2) 03/31/24 00:00 Globulin 2.7 g/dL (1.3-4.6) 03/31/24 00:00 Lipase 10 U/L (13-60) L 03/31/24 00:00 Urine Color Yellow (Yellow) 03/31/24 00:22 Urine Appearance Clear (CLEAR) 03/31/24 00:22 Urine pH 5.5 (5-7) 03/31/24 00:22 Ur Specific [place] 1.017 (1.005-1.030) 03/31/24 00:22 Urine Protein Trace (Negative) A 03/31/24 00:22 Urine Glucose (UA) Negative (Normal) 03/31/24 00: Urine Ketones Negative (Negative) 03/31/24 00: Urine Blood Non-haemolysed trace (Negative) 03/31/24 00: Urine Nitrate Negative (Negative) 03/31/24 00: Urine Bilirubin Negative (Negative) 03/31/24 00: Urine Urobilinogen 1.0 mg/dL (Negative) 03/31/24 00:22 Ur Leukocyte Esterase 3+ (Negative) A 03/31/24 00: Urine RBC 3-5 /hpf (0-2) 03/31/24 00:22 Urine WBC 21-50 /hpf (0-5) H 03/31/24 00:22 Ur Squamous Epith Cells 0-5 /hpf (0-5) 03/31/24 00:22 Amorphous Sediment Not Reportable 03/31/24 00:22 Urine Bacteria None seen /hpf (NONE) 03/31/24 00:22 Hyaline Casts 0.40 /lpf 03/31/24 00:22 Blood Type O Positive 03/31/24 06:16 Rho(D) Type Rh positive 03/31/24 06:16 Antibody Screen Negative 03/31/24 06:16 Vitals Last Vital Signs Temp 98.0 F 04/02/24 07:50 Pulse 62 04/02/24 07:50 Resp 16 04/02/24 07:50 BP 195/103 04/02/24 07:50 Pulse Ox 95 04/02/24 07:50 O2 Del Method Room Air 04/02/24 07:50 O2 Flow Rate 7 04/01/24 09:18 Discharge Plan Discharge Patient Disposition: Home Condition: Stable Prescriptions: New oxycodone 5 mg tablet 5 mg PO Q8H PRN (Reason: pain) 5 Days Qty: 14 0RF amoxicillin-pot clavulanate 875-125 mg tablet 1 tab PO BID 7 Days Qty: 14 0RF docusate sodium 100 mg tablet 100 mg PO DAILY Qty: 7 0RF Continued Eliquis 5 mg tablet 5 mg PO BID Discharge Orders: Discharge Order (Routine); Ordered 04/02/24 Ordered By: Derek Mayer Referrals: Derek Mayer MD [Physician] - (2 weeks) Patient Instructions: Appendicitis (GEN), Acute Wound Care (DC), Opioid Safety, Post Anesthesia Care Discharge Attestations Time Spent in Discharge Care*: less than 30 min Quality Metrics Clinical Quality Measures [ No reported AMI, CVA or VTE this stay] Coding Level of Care Code Acute Code for [facility] Fwd Diagnoses Acute appendicitis K35.80 Medication induced coagulopathy D68.9; T50.905A
--- NOTE | 2024-04-02 09:27 | PC.NURSE ---
Pt blood pressure 195/103. Pt states that he is not taking any medication for it, that it is because of pain and Alpha Gal. Pt also refuses to take pain medication and states, I am done with that stuff.
[2024-04-02 10:51] VITALS: BP 195/103; PULSE 62; RESP 16; TEMP 36.7; O2SAT 94
== END 2024-04-02 10:52 | disposition home or self-care (01) | DRG 398 ==
LOC: ER 03-31 01:47 → MEDSURG 03-31 02:57
PROVIDERS: Admitting Provider Surgery; Emergency Provider Emergency Medicine; Visit Provider Surgery
PROC: 0DTJ4ZZ Resection of Appendix, Percutaneous Endoscopic Approach (ICD-10-PCS; CPT 44970; principal; 2024-04-01 08:00)
DX: K35.80 Unspecified acute appendicitis (principal); D68.51 Activated protein C resistance; T45.515A Adverse effect of anticoagulants, initial encounter
CPT/HCPCS: 36415; 74018; 74177; 80048; 80053; 81001; 83605; 83690; 85018; 85025; 86850; 86900; 87040; 87086; 88304; 93005; 96365; 96375; 99285; G0378; J0131; J0696; J1100; J1171; J1200; J2270; J2371; J2405; J2543; J3010; J3490; P9045

== ENCOUNTER 2024-04-03 15:17 | Emergency (ER) | payer MEDICARE, BC, SELFPAY ==
[2024-04-03 15:31] VITALS: BP 151/78; PULSE 64; RESP 15; TEMP 36.6; O2SAT 98; BMI 27.9
--- NOTE | 2024-04-03 15:58 | CTR_ITS ---
PROCEDURE INFORMATION: Exam: CT Abdomen And Pelvis Without Contrast Exam date and time: 04/03/2024 5:18 PM Age: 84 years old Clinical indication: Constipation; Prior surgery; Surgery date: 3-7 days post-operative; Surgery type: Appy; Additional info: Bowel obstruction vs constipation vs ileus vs fecal impactio TECHNIQUE: Imaging protocol: Computed tomography of the abdomen and pelvis without contrast. Radiation optimization: All CT scans at this facility use at least one of these dose optimization techniques: automated exposure control; mA and/or kV adjustment per patient size (includes targeted exams where dose is matched to clinical indication); or iterative reconstruction. COMPARISON: CT abdomen pelvis w con* [id number] 03/31/2024 12:54 AM RADIATION DOSE METRICS: Total DLP (mGy-cm): 845.31 FINDINGS: Lungs: Mild bibasilar atelectasis. Coronary arteries: Coronary artery calcifications. Diaphragm: Small sliding hiatal hernia. Liver: Stable subcentimeter hepatic hypodensities, likely cysts. No suspicious liver lesion. Gallbladder and biliary ducts: Cholelithiasis without CT evidence of acute cholecystitis. Pancreas: Diffuse fatty atrophy of the pancreas. No ductal dilatation. Spleen: Normal. No splenomegaly. Adrenal glands: Normal. No mass. Kidneys and ureters: Stable bilateral renal cysts and subcentimeter hypodensities too small to characterize but likely representing additional cysts. No hydronephrosis. Stomach and bowel: Sigmoid diverticulosis without evidence of acute diverticulitis. Moderate stool throughout the colon, increased from prior. No evidence of bowel obstruction. Appendix: Interval appendectomy. Mild fat stranding in the vicinity of the is likely from postsurgical changes. Intraperitoneal space: Unremarkable. No free air. No significant fluid collection. Vasculature: Moderate atherosclerotic aortoiliac calcifications. No aortic aneurysm. Lymph nodes: Unremarkable. No enlarged lymph nodes. Urinary bladder: Unremarkable as visualized. Reproductive: Unremarkable as visualized. Bones/joints: Multilevel degenerative changes of the visualized spine. No acute fracture. Soft tissues: Small fat containing umbilical hernia. Bilateral fat containing inguinal hernias. A small amount of mildly complex fluid is again seen in the right inguinal canal. Interval development of subcutaneous gas scattered throughout the anterior abdominal wall bilaterally as well as in the visualized portions of the anterior mediastinum. CT/CT abdomen pelvis wo con [id number] IMPRESSION: 1. Interval appendectomy with associated postsurgical changes. Small amount of gas scattered within the anterior abdominal wall as well as trace air in the anterior mediastinum is likely related to postsurgical changes. 2. Moderate colonic stool may be seen in the setting of constipation. No evidence of bowel obstruction. 3. Additional ancillary findings as above are similar to prior. COMMENTS: Consistent with the [employer]'s Incidental Findings Committee white paper (J Am Ami Radiol 2018): Any incidental renal lesion less than 1 cm or classified as too small to characterize, or any incidental cystic renal lesion characterized as simple-appearing, is likely benign. No follow-up imaging is recommended for these lesions per consensus recommendations based on imaging criteria.
[2024-04-03 16:59] LABS: Basophils # 0.1 10^3/uL (0.0-0.1); Basophils % 0.7 %; Eosinophils # 0.5 10^3/uL (0.0-0.8); Eosinophils % 6.5 %; Hematocrit 40.1 % (37-53); Lymphocytes # 1.4 10^3/uL (0.8-4.8); Lymphocytes % 20.2 %; Mean Corpuscular HGB Conc 33.2 g/dL (30-55); Mean Corpuscular Hemoglobin 31.1 pg (27-33); Mean Corpuscular Volume 93.9 fl (82-101); Mean Platelet Volume 10.4 fL (7.4-10.4); Monocytes # 0.6 10^3/uL (0.2-0.9); Monocytes % 9.2 %; Neutrophils # 4.37 10^3/uL (1.8-7.7); Neutrophils % 63.1 %; Nucleated Red Blood Cells % 0 %; Platelet Count 213 10^3/cmm (157-399); Red Blood Count 4.27 10^6/uL (3.85-5.65); Red Cell Distribution Width 12.2 % (12.1-15.1); White Blood Count 6.93 10^3/uL (3.29-11.43)
--- NOTE | 2024-04-03 17:02 | ED_ITS ---
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 He had appendectomy on 04/01/2024. He had no complications at the time. Patient has been prescribed oxycodone for postoperative pain but has not needed it. Patient endorses no vomiting but he is belching frequently. He he was passing gas until about 9 AM and has not passed any since then. Associated Symptoms: Denies chills, diarrhea, dysuria, fever(s), syncope and vomiting Related Data Home Medications Medication Instructions Recorded Confirmed apixaban 5 mg tablet (Eliquis) 5 mg PO BID 03/31/24 03/31/24 Previous Rx's Medication Instructions Recorded amoxicillin 875 mg-potassium 1 tab PO BID 7 days #14 tabs 04/02/24 clavulanate 125 mg tablet docusate sodium 100 mg tablet 100 mg PO DAILY #7 tabs 04/02/24 oxycodone 5 mg tablet 5 mg PO Q8H PRN pain 5 days #14 04/02/24 tabs ondansetron 4 mg disintegrating 4 mg PO Q6H PRN nausea and 04/03/24 tablet vomiting #14 tabs polyethylene glycol 3350 17 17 g PO .every 1 hour PRN 04/03/24 gram/dose oral powder constipation 2 days #510 grams Allergies Allergy/AdvReac Type Severity Reaction Status Date / Time Alpha-Gal Allergy Unknown Verified 03/31/24 02:16 (Honoakpsx-Nwecz-8,3-Gala aspirin Allergy Unknown Verified 03/31/24 02:16 ciprofloxacin [From Cipro] Allergy Unknown Verified 03/31/24 02:16 salmeterol Allergy Unknown Verified 03/31/24 02:16 vancomycin Allergy Unknown Verified 03/31/24 02:16 Review of Systems 2 General: Reports: 10 or more systems reviewed and unremarkable except in HPI and below Const: Denies: fever(s), chills or body aches Eyes: Denies: change in vision ENMT: Denies: throat pain Card: Denies: chest pain, edema or syncope Resp: Denies: dyspnea or productive cough GI: Denies: vomiting or diarrhea : Denies: flank pain, dysuria or urinary frequency Musc: Denies: neck pain, back pain, extremity pain or extremity swelling Skin/Breast: Denies: rash or erythema Neuro: Denies: headache(s), numbness in extremities, weakness in extremities, lack of coordination or difficulty walking Physical Exam 2 Narrative: EXAM NARRATIVE: Abdomen is slightly distended, mostly in the upper half of the abdomen. Bowel sounds are decreased. In the upper abdomen there are high-pitched bowel sounds. There is some tympany to percussion through the upper abdomen. There is moderate tenderness between the umbilicus and epigastric region. Const: COMMON NORMALS: no limitations, alert and well nourished EXAM LIMITATIONS: no altered mental status HENMT: COMMON NORMALS: normocephalic and atraumatic HEAD & SCALP: n ormocephalic and atraumatic MOUTH: no muffled voice Neck/C-Spine: GENERAL: Yes normal visual inspection and Yes trachea midline Resp: COMMON NORMALS: normal respiratory effort, No use of accessory muscles and clear to auscultation bilaterally AUSCULTATION: clear to auscultation bilaterally Cardio: COMMON NORMALS: regular rate RATE: regular rate Neuro: COMMON NORMALS: moves all extremities, no focal motor deficits and no sensory deficits noted SENSORIUM/ORIENTATION: Yes alert SPEECH: speech normal Psych: COMMON NORMALS: mental status grossly normal, Normal thought process present, cooperative, normal affect and speech normal SPEECH: Yes normal speech THOUGHT PROCESS: Normal thought process present Skin: COMMON NORMALS: no rashes or lesions noted, turgor normal and no jaundice GENERAL SKIN EXAM: no rashes or lesions noted and turgor normal Course 2 Reevaluation(s): Reevaluation #1: Patient's labs are unremarkable. CT scan of the abdomen and pelvis without contrast does not show any bowel obstruction. He does have some fecal impaction and part of his colon with gas proximal to it. Patient is not vomiting. His pain is currently minimal but says it will come and go. Our plan is to start him on MiraLAX in addition to his docusate sodium. Tomorrow after he wakes up, we will try 17 g of MiraLAX with 6 to 8 ounces of fluid every hour as tolerated until he either has ability to pass stool and gas or fails. If he fails, has severe unrelenting pain, fever, or is unable to keep the medication down he will have to return to the emergency department. Patient and agreed to this plan. Vital Signs: Vital signs: Vital Signs Temperature 97.8 F 04/03/24 15:31 Pulse Rate 64 04/03/24 15:31 Respiratory Rate 15 04/03/24 15:31 Blood Pressure 151/78 04/03/24 15:31 Pulse Oximetry 98 04/03/24 15:31 Oxygen Delivery Me thod Room Air 04/03/24 15:31 MDM - Abdominal Pain Medical Decision Making Differential diagnosis includes bowel obstruction, ileus, fecal impaction, constipation, obstipation, other. CT scan of the abdomen and pelvis without contrast can be performed for further evaluation. Patient is hoping to return to [place] early this week so I feel CT scan would be better suited as it has higher sensitivity and specificity. Patient does have some mild erythema around his umbilical incision. He is on Augmentin. Do not think this is related to his reason for presentation. Lab Data 04/03/24 16:54 04/03/24 16:54 Labs/Radiology: Radiology Impressions Abdomen/Pelvis CT 04/03/24 15:58 IMPRESSION: 1. Interval appendectomy with associated postsurgical changes. Small amount of gas scattered within the anterior abdominal wall as well as trace air in the anterior mediastinum is likely related to postsurgical changes. 2. Moderate colonic stool may be seen in the setting of constipation. No evidence of bowel obstruction. 3. Additional ancillary findings as above are similar to prior. COMMENTS: Consistent with the [employer]'s Incidental Findings Committee white paper (J Am Ami Radiol 2018): Any incidental renal lesion less than 1 cm or classified as too small to characterize, or any incidental cystic renal lesion characterized as simple-appearing, is likely benign. No follow-up imaging is recommended for these lesions per consensus recommendations based on imaging criteria. Laboratory Results WBC 6.93 10^3/uL (3.29-11.43) 04/03/24 16:54 RBC 4.27 10^6/uL (3.85-5.65) 04/03/24 16:54 Hgb 13.30 g/dL (11.27-16.99) 04/03/24 16:54 Hct 40.1 % (37-53) 04/03/24 16:54 MCV 93.9 fl (82-101) 04/03/24 16:54 MCH 31.1 pg (27-33) 04/03/24 16:54 MCHC 33.2 g/dL (30-55) 04/03/24 16:54 RDW 12.2 % (12.1-15.1) 04/03/24 16:54 Plt Count 213 10^3/cmm (157-399) 04/03/24 16:54 MPV 10.4 fL (7.4-10.4) 04/03/24 16:54 Neut % (Auto) 63.1 % 04/03/24 16:54 Lymph % (Auto) 20.2 % 04/03/24 16:54 Liberty % (Auto) 9.2 % 04/03/24 16:54 Eos % (Auto) 6.5 % 04/03/24 16:54 Baso % (Auto) 0.7 % 04/03/24 16:54 Neut # (Auto) 4.37 10^3/uL (1.8-7.7) 04/03/24 16:54 Lymph # (Auto) 1.4 10^3/uL (0.8-4.8) 04/03/24 16:54 Liberty # (Auto) 0.6 10^3/uL (0.2-0.9) 04/03/24 16:54 Eos # (Auto) 0.5 10^3/uL (0.0-0.8) 04/03/24 16:54 Baso # (Auto) 0.1 10^3/uL (0.0-0.1) 04/03/24 16:54 Nucleated RBC % (auto) 0 % 04/03/24 16:54 Nucleated RBCs # 0.0 /100WBC 04/03/24 16:54 Sodium 138 mmol/L (136-145) 04/03/24 16:54 Potassium 4.1 mmol/L (3.5-5.1) 04/03/24 16:54 Chloride 104 mmol/L (98-107) 04/03/24 16:54 Carbon Dioxide 29 mmol/L (22-29) 04/03/24 16:54 Anion Gap 9.1 (5-19) 04/03/24 16:54 BUN 20 mg/dL (8-23) 04/03/24 16:54 Creatinine 1.1 mg/dL (0.7-1.2) 04/03/24 16:54 GFR Calculation Not Reportable 04/03/24 16:54 Glucose 101 mg/dL (65-115) 04/03/24 16:54 Calculated Osmolality 289 mOsm/kg (285-295) 04/03/24 16:54 Calcium 10.2 mg/dL (8.5-10.5) 04/03/24 16:54 Total Bilirubin 0.4 mg/dL (0.15-1.2) 04/03/24 16:54 AST 11 U/L (0-40) 04/03/24 16:54 ALT 10 U/L (0-41) 04/03/24 16:54 Alkaline Phosphatase 79 U/L (40-130) 04/03/24 16:54 Total Protein 6.3 g/dL (6.6-8.7) L 04/03/24 16:54 Albumin 3.8 g/dL (3.5-5.2) 04/03/24 16:54 Globulin 2.5 g/dL (1.3-4.6) 04/03/24 16:54 Lipase 9 U/L (13-60) L 04/03/24 16:54 All radiology interpretation(s) finalized by discharge Discharge Plan Discharge Patient Disposition: Home Clinical Impression: Fecal impaction of colon Condition: Stable Prescriptions: New polyethylene glycol 3350 17 gram/dose powder 17 g PO .every 1 hour PRN (Reason: constipation) 2 Days Qty: 510 0RF ondansetron 4 mg tablet,disintegrating 4 mg PO Q6H PRN (Reason: nausea and vomiting) Qty: 14 0RF No Action Eliquis 5 mg tablet 5 mg PO BID amoxicillin-pot clavulanate 875-125 mg tablet 1 tab PO BID 7 Days Qty: 14 0RF oxycodone 5 mg tablet 5 mg PO Q8H PRN (Reason: pain) 5 Days Qty: 14 0RF docusate sodium 100 mg tablet 100 mg PO DAILY Qty: 7 0RF Discharge Orders: Discharge ED (Routine); Ordered 04/03/24 Ordered By: Jimmy Gerber Discharge Diet: Advance as tolerated Discharge Activity: Increase activity as tolerated Patient Instructions: Ileus (ED) Activity Restrictions/Additional Instructions: You have some fecal impaction in your colon with some features of ileus. Often times this will improve with time and medication. Please take MiraLAX 17 g with 6-8 ounces of fluid every hour as needed until you are able to pass gas and stool. If you are unsuccessful, cannot take the medicine due to vomiting, have fever, or have severe unrelenting pain then you will have to return to the emergency department. Coding Level of Care Code ED [employer] Contact Printer for Uriel Stafford
[2024-04-03 17:17] LABS: Alanine Aminotransferase 10 U/L (0-41); Albumin Level 3.8 g/dL (3.5-5.2); Alkaline Phosphatase 79 U/L (40-130); Anion Gap 9.1 (5-19); Aspartate Amino Transferase 11 U/L (0-40); Blood Urea Nitrogen 20 mg/dL (8-23); Calcium 10.2 mg/dL (8.5-10.5); Carbon Dioxide 29 mmol/L (22-29); Chloride 104 mmol/L (98-107); Creatinine Clr Calc Pharmacy 55.9861; Globulin 2.5 g/dL (1.3-4.6); Glucose 101 mg/dL (65-115); Lipase 9 U/L (13-60); Osmolality Calculated 289 mOsm/kg (285-295); Potassium 4.1 mmol/L (3.5-5.1); Sodium 138 mmol/L (136-145); Total Bilirubin 0.4 mg/dL (0.15-1.2); Total Protein 6.3 g/dL (6.6-8.7)
[2024-04-03 18:34] VITALS: BP 153/82; PULSE 58; O2SAT 98
[2024-04-03 18:40] LABS: Bilirubin Urine Negative (Negative); Blood Urine Negative (Negative); Glucose Urine UA Negative (Normal); Ketones Urine Negative (Negative); Leukocyte Esterase Urine Negative (Negative); Nitrate Urine Negative (Negative); Protein Urine Negative (Negative); Specific Gravity, Urine 1.014 (1.005-1.030); Urine Appearance Clear (CLEAR); Urine Color Yellow (Yellow); Urobilinogen Urine 0.2 mg/dL (Negative)
[2024-04-03 18:43] LABS: Add Urine Microscopic? YES; Bacteria Urine None Seen /hpf; Hyaline Casts Urine 1.65 /lpf; RBC Urine 0-2 /hpf (0-2); Squamous Epithelial Cell Urine 0-5 /hpf (0-5); WBC Urine 0-5 /hpf (0-5)
[2024-04-03] MEDS: polyethylene glycol 3350 Pkt 17 gm 34 GM PO (19:30)
== END 2024-04-03 20:51 | disposition home or self-care (01) ==
PROVIDERS: Emergency Provider Emergency Medicine
DX: K56.41 Fecal impaction (principal); Z79.01 Long term (current) use of anticoagulants
CPT/HCPCS: 36415; 74176; 80053; 81001; 83690; 85025; 99284